=== PATIENT | female | born 1985 | race African-American/Black ===

== ENCOUNTER 2017-11-06 23:44 | Observation (INO) | payer SELFPAY ==
[~2017-11-06] VITALS: Ht 167.6 cm; Wt 72.6 kg
[2017-11-07] MEDS ORDERED: PREN1TAB45 PO (02:11)
[2017-11-07] MEDS ORDERED: FOLI-43 PO (02:11)
[2017-11-07] MEDS ORDERED: OCD PO (02:11)
== END 2017-11-07 02:30 | disposition home or self-care (01) ==
LOC: L&D 23:44
PROVIDERS: ADMIT Specialist; ATTEND Specialist
DX: O42.912 Preterm premature rupture of membranes, unspecified as to length of time between rupture and onset of labor, second trimester (principal); O62.9 Abnormality of forces of labor, unspecified; Z3A.25 25 weeks gestation of pregnancy
CPT/HCPCS: 76805; 99281; G0378